=== PATIENT | female | born 1990 | race Two or more races ===

== ENCOUNTER 2024-02-21 21:43 | Emergency (ER) | payer OTHER ==
[~2024-02-21] VITALS: Ht 154.9 cm; Wt 63.5 kg
[2024-02-21] MEDS ORDERED: 0.9 % SODIUM CHLORIDE 1,000 ML IV SCH (22:15)
[2024-02-21] MEDS ORDERED: METOPROLOL TARTRATE 25 MG TABLET PO ONE (22:15)
[2024-02-21] MEDS ORDERED: NITROGLYCERIN 250 ML IV SCH (23:00)
[2024-02-21] MEDS ORDERED: ASPIRIN 325 MG TABLET PO ONE (23:00)
[2024-02-21 23:20] LABS: HEMATOCRIT 41.5 % (36.0-45.00); HEMOGLOBIN 14.3 g/dL (12.0-15.00); MEAN CELL VOLUME 93.4 fL (80.00-100.00); MEAN CORPUSCULAR HEMOGLOBIN 32.2 pg (27.00-32.0); MEAN CORPUSCULAR HGB CONC 34.5 g/dl (32.0-36.0); PLATELET COUNT 376 K/uL (150-450); RED BLOOD COUNT 4.45 M/uL (4.00-6.00); RED CELL DISTRIBUTION WIDTH 12.5 % (11.5-14.5)
[2024-02-21 23:38] LABS: INR 0.99; PARTIAL THROMBOPLASTIN TIME 22.9 SECONDS (22.0-34.0); PROTHROMBIN TIME 10.8 SECONDS (9.0-11.5)
[2024-02-21 23:44] LABS: ALBUMIN 4.6 gm/dL (3.4-5.0); BILIRUBIN TOTAL 0.49 mg/dL (0.3-1.2); CALCIUM 9.9 mg/dL (8.5-10.1); CREATININE SERUM 0.85 mg/dL (0.55-1.02); GFR 77.02; GLOBULINA 3.6 G/DL (2.4-3.5); POTASSIUM 3.89 mEq/L (3.5-5.1); TOTAL PROTEIN 8.2 gm/dL (6.4-8.2)
[2024-02-21] MEDS ORDERED: INSULIN GLARGINE,HUM.REC.ANLOG 1,000 UNITS/10 ML UNITS SUBCUTANEO ONE (23:45)
[2024-02-22 00:27] LABS: URINE APPEARANCE Cloudy; URINE BILIRRUBIN Negative (NEGATIVE); URINE BLOOD Negative; URINE COLOR Yellow; URINE GLUCOSE Negative (NEGATIVE); URINE KETONE Trace (NEGATIVE); URINE LEUKOCYTE Small; URINE NITRATE Negative; URINE PROTEIN Trace (NEGATIVE)
[2024-02-22 00:31] LABS: URINE EPITHELIAL CELLS 22.1 uL (0.0-38.8); URINE WBC 78.2 uL (0.0-23.2)
[2024-02-22 00:44] LABS: COCAINE NEGATIVE (NEGATIVE); METHADONE NEGATIVE (NEGATIVE); OPIATES NEGATIVE (NEGATIVE); THC ( Cannabinoids) POSITIVE (NEGATIVE)
[2024-02-22 00:45] LABS: URINE BACTERIA > 9821.5 uL (0.0-1933); URINE CAST 0.45 uL (0.0-1.40)
[2024-02-22 02:08] VITALS: BP 120/80; O2SAT 100
== END 2024-02-22 02:09 | disposition home or self-care (01) ==
LOC: ER 21:45
PROVIDERS: General Practice
DX: R00.2 Palpitations (principal)